=== PATIENT | female | born 1975 | race Caucasian/White ===

== ENCOUNTER 2019-03-12 15:43 | Observation (INO) | payer MEDICARE, MEDICAID ==
[~2019-03-12] VITALS: Ht 157 cm; Wt 164.4 kg
--- NOTE | 2019-03-12 15:57 | ED Dyspnea ---
General Stated Complaint: SOA, CHEST PAIN Source of Information: Patient Exam Limitations: No Limitations History of Present Illness Date Seen by Provider: Mar 12, 2019 Time Seen by Provider: 15:54 Initial Comments 43-year-old female presents with shortness of breath. She also complains of pain substernally when she takes a deep breath. Patient has severe emphysema COPD and is currently on home oxygen. She reports that it started around 4:30 this morning. That she's tried some inhalers with no improvement. She denies any nausea, vomiting, or diaphoresis. Patient is concerned she might have pneumonia. She does have a slight increased cough but no reports of fever. Allergies and Home Medications Allergies Coded Allergies: allopurinol (Verified Allergy, Unknown, 03/12/19) ibuprofen (Verified Allergy, Unknown, 03/12/19) levofloxacin (Verified Allergy, Unknown, 03/12/19) Review of Systems Review of Systems Constitutional: No diaphoresis, No fever Respiratory: cough, dyspnea on exertion, short of breath Cardiovascular: chest pain (with breathing) Gastrointestinal: no symptoms reported Genitourinary: no symptoms reported Skin: no symptoms reported Past Rdblctz-Ycwlmk-Qolfzo Hx Past Med/Social Hx: Reviewed Nursing Past Med/Soc Hx Physical Exam Vital Signs Vital Signs - First Documented 03/12/19 03/12/19 16:00 16:06 Temp 37.3 Pulse 129 B/P (MAP) 138/81 (100) Pulse Ox 98 O2 Delivery Nasal Cannula O2 Flow Rate 4.00 FiO2 98 Capillary Refill : Height, Weight, BMI Height: '" Weight: lbs. oz. kg; BMI Method: General Appearance: No Apparent Distress, WD/WN, Obese HEENT: PERRL/EOMI Respiratory: No Respiratory Distress, Decreased Breath Sounds (mild bibasilar) Cardiovascular: Tachycardia Gastrointestinal: Non Tender, Soft Neurologic/Psychiatric: Alert, Oriented x3 Skin: Normal Color, Warm/Dry Progress/Results/Core Measures Results/Orders Lab Results Laboratory Tests Test 03/12/19 15:50 Range/Units White Blood Count 9.8 4.3-11.0 10^3/uL Red Blood Count 4.08 L 4.35-5.85 10^6/uL Hemoglobin 10.4 L 11.5-16.0 G/DL Hematocrit 36 35-52 % Mean Corpuscular Volume 89 80-99 FL Mean Corpuscular Hemoglobin 25 25-34 PG Mean Corpuscular Hemoglobin Concent 29 L 32-36 G/DL Red Cell Distribution Width 14.5 10.0-14.5 % Platelet Count 190 130-400 10^3/uL Mean Platelet Volume 11.4 H 7.4-10.4 FL Neutrophils (%) (Auto) 73 42-75 % Lymphocytes (%) (Auto) 13 12-44 % Monocytes (%) (Auto) 12 0-12 % Eosinophils (%) (Auto) 1 0-10 % Basophils (%) (Auto) 0 0-10 % Neutrophils # (Auto) 7.2 1.8-7.8 X 10^3 Lymphocytes # (Auto) 1.2 1.0-4.0 X 10^3 Monocytes # (Auto) 1.2 H 0.0-1.0 X 10^3 Eosinophils # (Auto) 0.1 0.0-0.3 10^3/uL Basophils # (Auto) 0.0 0.0-0.1 10^3/uL D-Dimer 0.63 H 0.00-0.49 UG/ML Sodium Level 141 135-145 MMOL/L Potassium Level 4.3 3.6-5.0 MMOL/L Chloride Level 98 98-107 MMOL/L Carbon Dioxide Level 31 21-32 MMOL/L Anion Gap 12 5-14 MMOL/L Blood Urea Nitrogen 29 H 7-18 MG/DL Creatinine 1.48 H 0.60-1.30 MG/DL Estimat Glomerular Filtration Rate 38 BUN/Creatinine Ratio 20 Glucose Level 124 H 70-105 MG/DL Calcium Level 9.7 8.5-10.1 MG/DL Corrected Calcium 9.4 8.5-10.1 MG/DL Magnesium Level 2.0 1.6-2.4 MG/DL Total Bilirubin 0.3 0.1-1.0 MG/DL Aspartate Amino Transf (AST/SGOT) 15 5-34 U/L Alanine Aminotransferase (ALT/SGPT) 8 0-55 U/L Alkaline Phosphatase 61 40-136 U/L Troponin I < 0.30 <0.30 NG/ML Total Protein 7.4 6.4-8.2 GM/DL Albumin 4.4 3.2-4.5 GM/DL My Orders Orders - MEDINA,EDUARDO L DO Cbc With Automated Diff (03/12/19 15:52) Comprehensive Metabolic Panel (03/12/19 15:52) Magnesium (03/12/19 15:52) Chest Pa/Lat (2 View) (03/12/19 15:52) Ekg Tracing (03/12/19 15:52) O2 (03/12/19 15:52) Ed Iv/Invasive Line Start (03/12/19 15:52) Monitor-Rhythm Ecg Trace Only (03/12/19 15:52) Troponin I Fs (03/12/19 15:52) Fibrin Degradation Products (03/12/19 15:57) Albuterol/Ipra Inhalation Soln (Duoneb I (03/12/19 16:15) Svn Small Volume Nebulizer (03/12/19 16:15) Magnesium 1 Gm/100 Ml Ivpb (Magnesium Munoz (03/12/19 16:15) Diltiazem Cd 24 Hr Capsule (Cardizem Cd (03/13/19 09:00) Apixaban Tablet (Eliquis Tablet) (03/12/19 17:00) Medications Given in ED Current Medications Medications Dose Ordered Sig/Robert Route Start Time Stop Time Status Last Admin Dose Admin Albuterol/ Ipratropium 3 ml ONCE ONCE INH 03/12/19 16:15 03/12/19 16:18 DC 03/12/19 16:25 3 ML Magnesium Sulfate/ Dextrose 100 ml @ 0 mls/hr ONCE ONCE IV 03/12/19 16:15 03/12/19 16:18 DC 03/12/19 16:25 100 MLS/HR Vital Signs/I&O 03/12/19 03/12/19 16:00 16:06 Temp 37.3 Pulse 129 B/P (MAP) 138/81 (100) Pulse Ox 98 O2 Delivery Nasal Cannula O2 Flow Rate 4.00 FiO2 98 Progress Progress Note : Time: 16:58 Progress Note Diltiazem exam CD 240 mg or any by mouth diltiazem is not available at this facility. We will bridge with a small dose of diltiazem IV until patient is able to be admitted and transferred to [facility] to receive her by mouth dose. Initial ECG Impression Date: Mar 12, 2019 Initial ECG Impression Time: 15:51 Initial ECG Rate: 133 Initial ECG Rhythm: A Fib/Flutter Initial ECG Intervals: QT (510ms) Initial ECG Impression: Atrial Fibrillation Initial ECG Comparisson: No Previous ECG Available Comment Afib, prolonged qt Departure Communication (Admissions) Time/Spoke to Admitting Phy: 16:45 Called and discussed with Dr. Russ. We will transfered and admit patient Via [facility] ICU for observation. Patient with new onset atrial fib, pulmonary edema. Also consulted Dr. Araujo who would like Cardizem CD 240 mg by mouth started daily along with Eliquis 5 mg now and then 5 mg twice a day. Patient is stable. She will be transferred in stable condition. Bridge orders were written by co Time/Spoke to Consulting Phy: 16:50 Impression Primary Impression: Atrial fibrillation Qualified Codes: I48.91 - Unspecified atrial fibrillation Additional Impression: Pulmonary congestion Disposition: ADMITTED INPATIENT Condition: Stable Admissions Decision to Admit Reason: Admit from ER (General) Departure-Patient Inst. Referrals: NO,LOCAL PHYSICIAN (PCP/Family) Primary Care Physician EDUARDO MEDINA DO Mar 12, 2019 15:56
[2019-03-12 16:00] LABS: HEMATOCRIT 36 % (35-52); HEMOGLOBIN 10.4 G/DL (11.5-16.0); MEAN CORPUSCULAR HEMOGLOBIN 25 PG (25-34); MEAN CORPUSCULAR VOLUME 89 FL (80-99); WHITE BLOOD COUNT 9.8 10^3/uL (4.3-11.0)
[2019-03-12 16:01] LABS: BASOPHILS % (AUTO) 0 % (0-10); EOSINOPHILS # (AUTO) 0.1 10^3/uL (0.0-0.3); EOSINOPHILS % (AUTO) 1 % (0-10); LYMPHOCYTES # (AUTO) 1.2 X 10^3 (1.0-4.0); LYMPHOCYTES % (AUTO) 13 % (12-44); MEAN CORPUSCULAR HGB CONC 29 G/DL (32-36); MEAN PLATELET VOLUME 11.4 FL (7.4-10.4); MONOCYTES # (AUTO) 1.2 X 10^3 (0.0-1.0); MONOCYTES % (AUTO) 12 % (0-12); NEUTROPHILS # (AUTO) 7.2 X 10^3 (1.8-7.8); NEUTROPHILS % (AUTO) 73 % (42-75); PLATELET COUNT 190 10^3/uL (130-400); RED CELL DISTRIBUTION WIDTH 14.5 % (10.0-14.5)
[2019-03-12] MEDS ORDERED: MAGNESIUM 1 GM/100 ML IVPB 100 ML IV ONE (16:15)
[2019-03-12] MEDS ORDERED: RT-ALBUTEROL/IPRATROPIUM 3 ML (DUONEB) VIAL INH ONE (16:15)
[2019-03-12 16:21] LABS: BUN/CREATININE RATIO 20; CARBON DIOXIDE 31 MMOL/L (21-32); CHLORIDE 98 MMOL/L (98-107); CREATININE SERUM 1.48 MG/DL (0.60-1.30); GFR ESTIMATED 38; POTASSIUM 4.3 MMOL/L (3.6-5.0); SODIUM 141 MMOL/L (135-145)
--- NOTE | 2019-03-12 16:21 | Diagnostic Imaging Report ---
PA and lateral chest 3:47. Indication: Chest pain. There are no prior studies available for comparison. The heart is enlarged and the central pulmonary vascularity is engorged. This appearance would be consistent with pulmonary congestion. There is no sign of pneumonia or significant pleural effusion. The mediastinum is not widened. The osseous structures are intact. Impression: There is cardiomegaly and pulmonary congestion. A follow-up exam would recommended for continued evaluation. Dictated by: Dictated on workstation # [id number]
[2019-03-12 16:22] LABS: ALANINE AMINOTRANSFERASE 8 U/L (0-55); ALBUMIN 4.4 GM/DL (3.2-4.5); ALKALINE PHOSPHATASE 61 U/L (40-136); BILIRUBIN,TOTAL 0.3 MG/DL (0.1-1.0); CALCIUM 9.7 MG/DL (8.5-10.1); GLUCOSE 124 MG/DL (70-105); TOTAL PROTEIN 7.4 GM/DL (6.4-8.2)
--- NOTE | 2019-03-12 16:25 | NUR ---
[facility] LEFT FOR A TRANSFER AND WILL NOT RETURN UNTIL ABOUT 1999. [facility], [facility], AND [facility] ALL TURNED DOWN THE TRANSFER. THE PT IS AWARE OF THE WAIT TIME.
[2019-03-12] MEDS ORDERED: APIXABAN 5 MG (ELIQUIS) TABLET PO ONE (17:00)
[2019-03-12] MEDS ORDERED: DILTIAZEM 25 MG/5 ML INJ (CARDIZEM) VIAL IVP ONE ×2 (17:00→18:15)
--- NOTE | 2019-03-12 19:45 | NUR ---
Called to registration to request an un-do of a an erroneously placed depart time 1645. Pt is currently awaiting EMS availability by [facility] on a current transfer to [facility]. No surrounding county ambulance acceptance from calls made by Kisha GUAJARDO before 1600. All [facility]/EMS services report no extra trucks to put in service for [facility]. Registration states can not un-do a time on an admitted patient.
--- NOTE | 2019-03-12 20:36 | NUR ---
Patient left with [facility].
[2019-03-12 21:27] VITALS: BP 133/97
[2019-03-12 21:34] VITALS: BP 141/92
[2019-03-12 21:45] VITALS: BP 148/88
[2019-03-12 22:00] VITALS: BP 130/88
[2019-03-12] MEDS: ALPRAZolam 0.5 MG (XANAX) TAB PO SCH (22:53)
[2019-03-12] MEDS: MELATONIN 3 MG TABLET PO SCH (22:54)
[2019-03-12] MEDS ORDERED: RT-IPRATROPIUM (ATROVENT) 0.5MG/2.5ML AMP IH ONE (22:55)
[2019-03-12] MEDS ORDERED: RT-LEVALBUTEROL (XOPENEX) 1.25 MG/3 ML NEB NON-FORMULARY ONE (22:56)
[2019-03-12 23:00] VITALS: BP 133/83
[2019-03-12] MEDS ORDERED: RT-LEVALBUTEROL (XOPENEX) 1.25 MG/3 ML NEB NON-FORMULARY INH PRN (23:45)
[2019-03-12] MEDS ORDERED: RT-IPRATROPIUM (ATROVENT) 0.5MG/2.5ML AMP IH PRN (23:45)
[2019-03-13] VITALS (16 sets, daily range): BP systolic 101–143; BP diastolic 66–112
[2019-03-13 04:07] LABS: BASOPHILS % (AUTO) 0 % (0-10); EOSINOPHILS # (AUTO) 0.1 10^3/uL (0.0-0.3); EOSINOPHILS % (AUTO) 1 % (0-10); HEMATOCRIT 32 % (35-52); HEMOGLOBIN 9.5 G/DL (11.5-16.0); LYMPHOCYTES # (AUTO) 0.9 X 10^3 (1.0-4.0); LYMPHOCYTES % (AUTO) 13 % (12-44); MEAN CORPUSCULAR HEMOGLOBIN 26 PG (25-34); MEAN CORPUSCULAR HGB CONC 30 G/DL (32-36); MEAN CORPUSCULAR VOLUME 87 FL (80-99); MEAN PLATELET VOLUME 12.2 FL (7.4-10.4); MONOCYTES # (AUTO) 0.8 X 10^3 (0.0-1.0); MONOCYTES % (AUTO) 12 % (0-12); NEUTROPHILS # (AUTO) 5.3 X 10^3 (1.8-7.8); NEUTROPHILS % (AUTO) 74 % (42-75); PLATELET COUNT 146 10^3/uL (130-400); RED CELL DISTRIBUTION WIDTH 14.7 % (10.0-14.5); WHITE BLOOD COUNT 7.1 10^3/uL (4.3-11.0)
[2019-03-13 04:33] LABS: CALCIUM 9.6 MG/DL (8.5-10.1); CREATININE SERUM 1.34 MG/DL (0.60-1.30); MAGNESIUM 2.2 MG/DL (1.6-2.4); PHOSPHORUS 3.9 MG/DL (2.3-4.7); POTASSIUM 4.2 MMOL/L (3.6-5.0)
--- NOTE | 2019-03-13 05:50 | Pulmonary Consultation ---
History of Present Illness History of Present Illness Date of Consultation 03/13/19 05:50 Time Seen by Provider: 11:17 Date of Admission History of Present Illness 43yo with hx of morbid obesity, BOSTON ( noncompliant with CPAP therapy) presented to ED with progressive SOB and pleuritic substernal CP. Onset was of symptoms was in the morning just prior to arrival. Home INH did not help. No fevers, N/V/D. I am consulted for pulmonary management. Allergies and Home Medications Allergies Coded Allergies: allopurinol (Verified Allergy, Unknown, 03/12/19) ibuprofen (Verified Allergy, Unknown, 03/12/19) levofloxacin (Verified Allergy, Unknown, 03/12/19) Home Medications Albuterol Sulfate 2.5 Mg/3 Ml Vial.neb, 2.5 MG NEB Q6H PRN for SHORTNESS OF BREATH, (Reported) Albuterol Sulfate 1 Puff Puff, 2 PUFF IH Q4H PRN for SHORTNESS OF BREATH, (Reported) 1 PUFF = 90 MCG Alprazolam 0.25 Mg Tablet, 0.25 MG PO HS, (Reported) Brimonidine Tartrate 5 Ml Btl, 1 DROP OU BID, (Reported) 0.2% Citalopram Hydrobromide 40 Mg Tablet, 20 MG PO HS, (Reported) TAKES 1/2 (40MG) TABLET Colchicine 0.6 Mg Tablet, 0.6 MG PO Q48H, (Reported) Docusate Sodium 100 Mg Capsule, 700-800 MG PO DAILY, (Reported) Ferrous Sulfate 325 Mg Tablet, 325 MG PO DAILY, (Reported) Furosemide 40 Mg Tablet, 40 MG PO Q48H, (Reported) Furosemide 40 Mg Tablet, 20 MG PO Q48H, (Reported) TAKES 1/2 (40MG) TABLET ON DAYS SHE TAKES COLCHICINE Lisinopril 20 Mg Tablet, 10 MG PO DAILY, (Reported) TAKES 1/2 (20MG) TABLET Medroxyprogesterone Acetate 150 Mg/1 Ml Syringe, 150 MG IM EVERY 3 MONTHS, (Reported) Melatonin 10 Mg Capsule, 10 MG PO HS, (Reported) Potassium Chloride 10 Meq Tablet.er, 10 MEQ PO DAILY, (Reported) Past Bnpjkrl-Bsuxua-Zvasuj Hx Past Med/Social Hx: Reviewed Nursing Past Med/Soc Hx Patient Social History Alcohol Use: Denies Use Recreational Drug Use: No Smoking Status: Never a Smoker 2nd Hand Smoke Exposure: No Recent Foreign Travel: No Contact w/Someone Who Travel: No Recent Infectious Disease Expo: No Recent Hopitalizations: No Physical Abuse: No Sexual Abuse: No Mistreated: No Fear: No Seasonal Allergies Seasonal Allergies: No Past Medical History Surgeries: No Respiratory: Yes Asthma, COPD Cardiac: Yes (CHF) Genitourinary: No Gastrointestinal: No Musculoskeletal: Yes Gout Endocrine: Yes Diabetes, Non-Insulin dep HEENT: No Cancer: No Psychosocial: No Integumentary: No Blood Disorders: No Sepsis Event Evaluation Height, Weight, BMI Height: '" Weight: lbs. oz. kg; 66.12 BMI Method: Exam Exam Vital Signs Date Time Temp Pulse Resp B/P (MAP) Pulse Ox O2 Delivery O2 Flow Rate FiO2 03/13/19 04:00 97 Nasal Cannula 3.00 03/13/19 01:00 117 21 113/66 (82) 99 Nasal Cannula 3.00 03/13/19 01:00 117 03/13/19 00:00 110 25 101/75 (84) 99 Nasal Cannula 3.00 03/13/19 00:00 98 Nasal Cannula 3.00 03/12/19 23:00 105 14 133/83 (100) 100 Nasal Cannula 3.00 03/12/19 22:59 99 Nasal Cannula 4.00 03/12/19 22:00 83 26 130/88 (102) 90 Nasal Cannula 3.00 03/12/19 21:45 100 20 148/88 (108) 95 Nasal Cannula 3.00 03/12/19 21:34 97 28 141/92 (108) 92 Nasal Cannula 3.00 03/12/19 21:28 117 03/12/19 21:27 36.3 112 20 133/97 (109) 93 Nasal Cannula 3.00 03/12/19 20:36 107 20 155/104 96 Nasal Cannula 4.00 03/12/19 16:06 98 4.00 98 03/12/19 16:00 37.3 129 138/81 (100) Nasal Cannula I & O 03/13/19 07:00 Intake Total 450 ml Balance 450 ml Height & Weight Height: '" Weight: lbs. oz. kg; 66.12 BMI Method: General Appearance: No Apparent Distress, WD/WN, Obese HEENT: PERRL/EOMI Respiratory: No Respiratory Distress, Decreased Breath Sounds (mild bibasilar) Cardiovascular: Tachycardia Capillary Refill: Less Than 3 Seconds Neurologic/Psychiatric: Alert, Oriented x3 Skin: Normal Color, Warm/Dry Results Lab Laboratory Tests 03/12/19 15:50 03/13/19 03:20 Assessment/Plan Assessment/Plan A-fib/flutter with RVR -Cardiology is following COPDAE -SVNS Nocturnal hypoxia -PT uses oxygen at night Morbid obesity with OHS -Will follow for BOSTON if pt wants to become tolerant of CPAP therapy CHF -Echo pending DM II CKD III Bilateral LE edema -Dopplers are negative MARCELO SHOEMAKER DO Mar 13, 2019 05:50
--- NOTE | 2019-03-13 07:21 | Diagnostic Imaging Report ---
INDICATION: Atrial fib, CHF. COMPARISON: 03/12/2019 FINDINGS: Single view of the chest demonstrates cardiac enlargement with persistent but decreased central vascular congestion. There is no pneumothorax. Osseous structures are stable. No large effusion. IMPRESSION: Cardiac enlargement with persistent but decreasing central vascular congestion. Dictated by: Dictated on workstation # [id number]
[2019-03-13] MEDS ORDERED: RT-ALBUTEROL/IPRATROPIUM 3 ML (DUONEB) VIAL INH PRN (07:45)
[2019-03-13] MEDS ORDERED: FLU QUADRIvalent (5+ YOA) 2019-2020 (AFLURIA) 0.5 ML IM ONE (08:00)
[2019-03-13] MEDS: APIXABAN 5 MG (ELIQUIS) TABLET PO SCH ×2 (08:38→21:27)
[2019-03-13] MEDS ORDERED: DILTIAZEM 240 MG (CARDIZEM CD) CAP PO SCH ×2 (09:00)
--- NOTE | 2019-03-13 09:06 | Consultation-Cardiology ---
HPI-Cardiology Cardiology Consultation: Date of Consultation 03/13/19 Time Seen by a Provider: 08:45 Date of Admission 03-13-19 Attending Physician Jackie Reyes DO Admitting Physician Silvio Fu MD Consulting Physician James Lewis MD HPI: Chief Complaint: New onset a-fib/flutter with RVR Ms. Mane is a 43 year old female admitted to ICU 6 from [facility] ED. She reports she woke up yesterday morning around 4 a.m. and felt she was unable to catch her breath. She report she was having mid-sternal chest pain, which was dull, present with deep breathing. She reports a feeling of fullness in her chest. She reports she tried her albuterol SVN and inhaler at home with no relief. She reports she was unable to rest d/t SOB. She states by approx 3 p.m. she went to the ED in [facility] and was told she was in a-fib. She continues to feel short of breath with chest tightness when trying to take deep breaths. She denies any n/v/d. She denies any fever or chills. She states she has been having episodes of palpitations at home brought on with exertion and relieved with rest. She reports chronic exertional dyspnea, but it has been progressively worse. She denies any syncope or near syncope. 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 Review of Systems-Cardiology Review of Systems Constitutional: No chills, No fever Eyes: No vision change Ears/Nose/Throat: No epistaxis, No recent hearing loss Respiratory: As described under HPI Cardiovascular: As described under HPI Gastrointestinal: No constipation, No diarrhea, No nausea, No vomiting Genitourinary: No dysuria, No hematuria Skin: No rash on exposed areas, No ulcerations on exposed areas Psychiatric/Neurological: No focal weakness, No syncope Hematologic: anemia; No bleeding abnormalities RUG-Srjjml-Bbveyk Hx Patient Social History Alcohol Use: Denies Use Recreational Drug Use: No Smoking Status: Never a Smoker 2nd Hand Smoke Exposure: No Recent Foreign Travel: No Recent Infectious Disease Expo: No Past Medical History PMH As described under Assessment. Family Medical History Family Medical History: Denies any family h/o premature CAD or SCD. Allergies and Home Medications Allergies Coded Allergies: allopurinol (Verified Allergy, Unknown, 03/12/19) ibuprofen (Verified Allergy, Unknown, 03/12/19) levofloxacin (Verified Allergy, Unknown, 03/12/19) Home Medications Albuterol Sulfate 2.5 Mg/3 Ml Vial.neb, 2.5 MG NEB Q6H PRN for SHORTNESS OF BREATH, (Reported) Albuterol Sulfate 1 Puff Puff, 2 PUFF IH Q4H PRN for SHORTNESS OF BREATH, (Reported) 1 PUFF = 90 MCG Alprazolam 0.25 Mg Tablet, 0.25 MG PO HS, (Reported) Brimonidine Tartrate 5 Ml Btl, 1 DROP OU BID, (Reported) 0.2% Citalopram Hydrobromide 40 Mg Tablet, 20 MG PO HS, (Reported) TAKES 1/2 (40MG) TABLET Colchicine 0.6 Mg Tablet, 0.6 MG PO Q48H, (Reported) Docusate Sodium 100 Mg Capsule, 700-800 MG PO DAILY, (Reported) Ferrous Sulfate 325 Mg Tablet, 325 MG PO DAILY, (Reported) Furosemide 40 Mg Tablet, 40 MG PO Q48H, (Reported) Furosemide 40 Mg Tablet, 20 MG PO Q48H, (Reported) TAKES 1/2 (40MG) TABLET ON DAYS SHE TAKES COLCHICINE Lisinopril 20 Mg Tablet, 10 MG PO DAILY, (Reported) TAKES 1/2 (20MG) TABLET Medroxyprogesterone Acetate 150 Mg/1 Ml Syringe, 150 MG IM EVERY 3 MONTHS, (Reported) Melatonin 10 Mg Capsule, 10 MG PO HS, (Reported) Potassium Chloride 10 Meq Tablet.er, 10 MEQ PO DAILY, (Reported) Physical Exam-Cardiology Physical Exam Vital Signs/I&O 03/13/19 03/13/19 03/13/19 03/14/19 20:19 20:31 21:00 00:00 Temp 36.8 36.3 Pulse 102 85 Resp 18 18 B/P (MAP) 118/82 (94) 111/75 (87) Pulse Ox 97 98 98 O2 Delivery Nasal Cannula Nasal Cannula Nasal Cannula Nasal Cannula O2 Flow Rate 3.00 2.00 3.00 2.50 03/14/19 03/14/19 03/14/19 01:00 04:00 06:59 Temp 36.6 Pulse 82 84 87 Resp 16 B/P (MAP) 119/86 (97) Pulse Ox 98 O2 Delivery Nasal Cannula O2 Flow Rate 2.50 03/14/19 00:00 Intake Total 882 ml Balance 882 ml Capillary Refill : Less Than 3 Seconds Constitutional: AAO x 3, well-developed, well-nourished HEENT: PERRL, hearing is well preserved, oral hygience is good Neck: No carotid bruit; carotid pulses are 2 + bilaterally Respiratory: No accessory muscle use, No respiratory distress; chest expansion is symmetric, chest is bilaterally symmetric, other (good air entry) Cardiovascular: irregularly irregular; No JVD; S1 and S2 Gastrointestinal: No tender; soft, round, audible bowel sounds Rectal: deferred Extremities: no lower extremity edema bilateral Neurologic/Psychiatric: grossly intact Skin: No rash on exposed areas, No ulcerations on exposed areas Data Review Labs Laboratory Tests 03/13/19 12:14: Blood Gas Puncture Site RT RADIAL, Blood Gas Patient Temperature 36.6, Arterial Blood pH 7.36L, Arterial Blood Partial Pressure CO2 65H, Arterial Blood Partial Pressure O2 123H, Arterial Blood HCO3 36H, Arterial Blood Total CO2 38.2H, Arterial Blood Oxygen Saturation 99, Arterial Blood Base Excess 10.4H, Olaf Test YES-POS, Blood Gas Ventilator Setting NO, Blood Gas Inspired Oxygen 4 03/14/19 06:39: White Blood Count 5.8, Red Blood Count 3.50L, Hemoglobin 9.0L, Hematocrit 31L, Mean Corpuscular Volume 90, Mean Corpuscular Hemoglobin 26, Mean Corpuscular Hemoglobin Concent 29L, Red Cell Distribution Width 14.9H, Platelet Count 160, Mean Platelet Volume 11.9H, Neutrophils (%) (Auto) 71, Lymphocytes (%) (Auto) 15, Monocytes (%) (Auto) 11, Eosinophils (%) (Auto) 3, Basophils (%) (Auto) 0, Neutrophils # (Auto) 4.1, Lymphocytes # (Auto) 0.9L, Monocytes # (Auto) 0.6, Eosinophils # (Auto) 0.2, Basophils # (Auto) 0.0, Sodium Level 141, Potassium Level 4.5, Chloride Level 101, Carbon Dioxide Level 30, Anion Gap 10, Blood Urea Nitrogen 31H, Creatinine 1.37H, Estimat Glomerular Filtration Rate 42, BUN/Cr eatinine Ratio 23, Glucose Level 87, Calcium Level 9.4, Phosphorus Level 4.5, Magnesium Level 2.4 Microbiology 03/12/19 MRSA Screen - Final, Complete MRSA not isolated Radiology NAME: CHEYANNE MANE [facility] REC#: [id number] PT STATUS: ADM Letty : 1975 PHYSICIAN: JACKIE REYES DO ADMIT DATE: 03/12/19/ICU Draft Date of Exam:03/13/19 CHEST 1 VIEW, AP/PA ONLY INDICATION: Atrial fib, CHF. COMPARISON: 03/12/2019 FINDINGS: Single view of the chest demonstrates cardiac enlargement with persistent but decreased central vascular congestion. There is no pneumothorax. Osseous structures are stable. No large effusion. IMPRESSION: Cardiac enlargement with persistent but decreasing central vascular congestion. Dictated on workstation # [id number] Dict: 03/13/19 0713 Trans: 03/13/19 0720 [id number] Interpreted by: MANOJ RAY Electronically signed by: ECG Impression ECG Initial ECG Impression: Atrial Fibrillation w/RVR A/P-Cardiology Assessment/Admission Diagnosis New onset a-fib/flutter with RVR (first diagnosed at time of ED evaluation 03-15-19) Progressive exertional dyspnea Palpitations with exertion likely secondary to a-fib/flutter with RVR Chest discomfort with deep breathing Reports h/o CHF first diagnosed in 2015 per pt report - acute on chronic CHF, likely diastolic HTN DM 2 Acute exacerbation of COPD - pulmonary services managing BOSTON - non-compliant with CPAP tx CKD Reported h/o iron deficiency anemia Chronic bilat LE swelling Morbid obesity - BMI 66.1 Clinical Quality Measures DVT/VTE Risk/Contraindication: Risk Factor Score Per Nursin RFS Level Per Nursing on Admit: 4+=Very High GUNNER BASURTO Mar 13, 2019 09:06
[2019-03-13] MEDS ORDERED: ALBU2.5V4 NEB (09:12)
[2019-03-13] MEDS ORDERED: FURO40TA4 PO (09:12)
[2019-03-13] MEDS ORDERED: COLC0.6T56 PO (09:12)
[2019-03-13] MEDS ORDERED: CITA40TA11 PO (09:12)
[2019-03-13] MEDS ORDERED: POTA10TA10 PO (09:12)
[2019-03-13] MEDS ORDERED: FERR-84 PO (09:12)
[2019-03-13] MEDS ORDERED: DOCU-143 PO (09:12)
[2019-03-13] MEDS ORDERED: RT-ALBUINH IH (09:12)
[2019-03-13] MEDS ORDERED: BRIMON0.2 OU (09:12)
[2019-03-13] MEDS ORDERED: LISI-552 PO (09:12)
[2019-03-13] MEDS ORDERED: ALPR0.254 PO (09:12)
[2019-03-13] MEDS ORDERED: MELA10CA2 PO (09:14)
[2019-03-13] MEDS ORDERED: MEDR150D8 IM (09:14)
--- NOTE | 2019-03-13 09:22 | NUR ---
SPOKE WITH THE PATIENT ABOUT HER MEDICATIONS. WE WENT OVER THE EXT MED HX AND SHE VERIFIED HOW SHE TAKES THEM. HER CELEXA 40MG WAS FILLED #30 FOR 30 DAYS 01-23-19 HOWEVER SHE STATES SHE IS ONLY TAKING 1/2 TABLET DAILY NOW. SHE TAKES 1/2 OF HER LASIX EVERY OTHER DAY (ON DAYS SHE TAKES COLCHICINE) AND TAKES A WHOLE LASIX ON THE OPPOSITE DAYS. OTC MEDS INCLUDE: COLACE 6-7- DAILY IRON DAILY MELATONIN 10MG HS SHE ALSO STATES SHE RECEIVES THE DEPO PROVERA SHOT EVERY THREE MONTHS.
[2019-03-13] MEDS ORDERED: DILTIAZEM 120 MG (CARDIZEM CD) CAP PO SCH (09:30)
--- NOTE | 2019-03-13 09:38 | Consultation-Cardiology ---
HPI-Cardiology Cardiology Consultation: Date of Consultation 03/13/19 Time Seen by a Provider: 09:15 Date of Admission Attending Physician Jackie Russ DO Admitting Physician Silvio Fu MD Consulting Physician DASIA VILLAR MD, MA, FACP, FACC, FSCAI, CCDS Physician requesting consult: Dr Russ HPI: Chief Complaint: Reason for consultation: Newly diagnosed a-fib/flutter with RVR Ms. Mane is a 43 year old female admitted to ICU 6 from [facility] ED. She reports she woke up yesterday morning around 4 a.m. and felt she was unable to catch her breath. She report she was having mid-sternal chest pain, which was dull, present with deep breathing. She reports a feeling of fullness in her chest. She reports she tried her albuterol SVN and inhaler at home with no relief. She reports she was unable to rest d/t SOB. She states by approx 3 p.m. she went to the ED in [facility] and was told she was in a-fib. She continues to feel short of breath with chest tightness when trying to take deep breaths. She denies any n/v/d. She denies any fever or chills. She states she has been having episodes of palpitations at home brought on with exertion and relieved with rest. She reports chronic exertional dyspnea, but it has been progressively worse. She denies any syncope or near syncope. She reports chronic bilat LE swelling which is least in the morning and worse at the end of the day. Review of Systems-Cardiology Review of Systems Constitutional: No chills, No fever Eyes: No vision change Ears/Nose/Throat: No epistaxis, No recent hearing loss Respiratory: As described under HPI Cardiovascular: As described under HPI Gastrointestinal: No constipation, No diarrhea, No nausea, No vomiting Genitourinary: No dysuria, No hematuria Skin: No rash on exposed areas, No ulcerations on exposed areas Psychiatric/Neurological: No focal weakness, No syncope Hematologic: anemia; No bleeding abnormalities TLB-Ahqluf-Wxybri Hx Patient Social History Alcohol Use: Denies Use Recreational Drug Use: No Smoking Status: Never a Smoker 2nd Hand Smoke Exposure: No Recent Foreign Travel: No Recent Infectious Disease Expo: No Past Medical History PMH As described under Assessment. Family Medical History Family Medical History: Denies any family h/o premature CAD or SCD. Allergies and Home Medications Allergies Coded Allergies: allopurinol (Verified Allergy, Unknown, 03/12/19) ibuprofen (Verified Allergy, Unknown, 03/12/19) levofloxacin (Verified Allergy, Unknown, 03/12/19) Home Medications Albuterol Sulfate 2.5 Mg/3 Ml Vial.neb, 2.5 MG NEB Q6H PRN for SHORTNESS OF B REATH, (Reported) Albuterol Sulfate 1 Puff Puff, 2 PUFF IH Q4H PRN for SHORTNESS OF BREATH, (Reported) 1 PUFF = 90 MCG Alprazolam 0.25 Mg Tablet, 0.25 MG PO HS, (Reported) Brimonidine Tartrate 5 Ml Btl, 1 DROP OU BID, (Reported) 0.2% Citalopram Hydrobromide 40 Mg Tablet, 20 MG PO HS, (Reported) TAKES 1/2 (40MG) TABLET Colchicine 0.6 Mg Tablet, 0.6 MG PO Q48H, (Reported) Docusate Sodium 100 Mg Capsule, 700-800 MG PO DAILY, (Reported) Ferrous Sulfate 325 Mg Tablet, 325 MG PO DAILY, (Reported) Furosemide 40 Mg Tablet, 40 MG PO Q48H, (Reported) Furosemide 40 Mg Tablet, 20 MG PO Q48H, (Reported) TAKES 1/2 (40MG) TABLET ON DAYS SHE TAKES COLCHICINE Lisinopril 20 Mg Tablet, 10 MG PO DAILY, (Reported) TAKES 1/2 (20MG) TABLET Medroxyprogesterone Acetate 150 Mg/1 Ml Syringe, 150 MG IM EVERY 3 MONTHS, (Reported) Melatonin 10 Mg Capsule, 10 MG PO HS, (Reported) Potassium Chloride 10 Meq Tablet.er, 10 MEQ PO DAILY, (Reported) Patient Home Medication List Home Medication List Reviewed: Yes Physical Exam-Cardiology Physical Exam Vital Signs/I&O 03/12/19 03/12/19 03/12/19 03/12/19 21:40 21:45 22:00 22:59 Pulse 100 83 Resp 20 26 B/P (MAP) 148/88 (108) 130/88 (102) Pulse Ox 96 95 90 99 O2 Delivery Nasal Cannula Nasal Cannula Nasal Cannula Nasal Cannula O2 Flow Rate 3.00 3.00 3.00 4.00 03/12/19 03/13/19 03/13/19 03/13/19 23:00 00:00 00:00 01:00 Pulse 105 110 117 Resp 14 25 B/P (MAP) 133/83 (100) 101/75 (84) Pulse Ox 100 98 99 O2 Delivery Nasal Cannula Nasal Cannula Nasal Cannula O2 Flow Rate 3.00 3.00 3.00 03/13/19 03/13/19 03/13/19 03/13/19 01:00 02:00 03:00 04:00 Pulse 117 101 123 Resp 21 23 21 B/P (MAP) 113/66 (82) 128/112 (117) Pulse Ox 99 97 100 97 O2 Delivery Nasal Cannula Nasal Cannula Nasal Cannula Nasal Cannula O2 Flow Rate 3.00 3.00 3.00 3.00 03/13/19 03/13/19 03/13/19 03/13/19 04:00 05:00 06:00 07:00 Pulse 113 116 100 107 Resp 26 21 22 28 B/P (MAP) 143/88 (106) 112/77 (89) 126/71 (89) 127/85 (99) Pulse Ox 92 100 100 100 O2 Delivery Nasal Cannula Nasal Cannula Nasal Cannula Nasal Cannula O2 Flow Rate 3.00 3.00 3.00 3.00 03/13/19 03/13/19 03/13/19 03/13/19 07:00 08:00 08:00 09:00 Pulse 114 106 112 Resp 21 12 B/P (MAP) 111/71 (84) 135/90 (105) Pulse Ox 100 97 94 O2 Delivery Nasal Cannula Nasal Cannula Nasal Cannula O2 Flow Rate 3.00 3.00 3.00 03/13/19 00:00 Intake Total 350 ml Balance 350 ml Capillary Refill : Less Than 3 Seconds Constitutional: AAO x 3, well-developed, well-nourished HEENT: PERRL, hearing is well preserved, oral hygience is good Neck: No carotid bruit; carotid pulses are 2 + bilaterally Respiratory: No accessory muscle use, No respiratory distress; chest expansion is symmetric, chest is bilaterally symmetric, other (good air entry) Cardiovascular: irregularly irregular; No JVD; S1 and S2 Gastrointestinal: No tender; soft, round, audible bowel sounds Rectal: deferred Extremities: no lower extremity edema bilateral Neurologic/Psychiatric: grossly intact Skin: No rash on exposed areas, No ulcerations on exposed areas Data Review Labs Laboratory Tests 03/12/19 15:50: White Blood Count 9.8, Red Blood Count 4.08L, Hemoglobin 10.4L, Hematocrit 36, Mean Corpuscular Volume 89, Mean Corpuscular Hemoglobin 25, Mean Corpuscular Hemoglobin Concent 29L, Red Cell Distribution Width 14.5, Platelet Count 190, Mean Platelet Volume 11.4H, Neutrophils (%) (Auto) 73, Lymphocytes (%) (Auto) 13, Monocytes (%) (Auto) 12, Eosinophils (%) (Auto) 1, Basophils (%) (Auto) 0, Neutrophils # (Auto) 7.2, Lymphocytes # (Auto) 1.2, Monocytes # (Auto) 1.2H, Eosinophils # (Auto) 0.1, Basophils # (Auto) 0.0, D-Dimer 0.63H, Sodium Level 141, Potassium Level 4.3, Chloride Level 98, Carbon Dioxide Level 31, Anion Gap 12, Blood Urea Nitrogen 29H, Creatinine 1.48H, Estimat Glomerular Filtration Rate 38, BUN/Creatinine Ratio 20, Glucose Level 124H, Calcium Level 9.7, Corrected Calcium 9.4, Magnesium Level 2.0, Total Bilirubin 0.3, Aspartate Amino Transf (AST/SGOT) 15, Alanine Aminotransferase (ALT/SGPT) 8, Alkaline Phosphatase 61, Troponin I < 0.30, Total Protein 7.4, Albumin 4.4 03/13/19 03:20: White Blood Count 7.1, Red Blood Count 3.67L, Hemoglobin 9.5L, Hematocrit 32L, Mean Corpuscular Volume 87, Mean Corpuscular Hemoglobin 26, Mean Corpuscular Hemoglobin Concent 30L, Red Cell Distribution Width 14.7H, Platelet Count 146, Mean Platelet Volume 12.2H, Neutrophils (%) (Auto) 74, Lymphocytes (%) (Auto) 13, Monocytes (%) (Auto) 12, Eosinophils (%) (Auto) 1, Basophils (%) (Auto) 0, Neutrophils # (Auto) 5.3, Lymphocytes # (Auto) 0.9L, Monocytes # (Auto) 0.8, Eosinophils # (Auto) 0.1, Basophils # (Auto) 0.0, Sodium Level 143, Potassium Level 4.2, Chloride Level 101, Carbon Dioxide Level 28, Anion Gap 14, Blood Urea Nitrogen 26H, Creatinine 1.34H, Estimat Glomerular Filtration Rate 43, BUN/Creatinine Ratio 19, Glucose Level 105, Calcium Level 9.6, Magnesium Level 2.2, Phosphorus Level 3.9, B-Type Natriuretic Peptide 272.5H A/P-Cardiology Assessment/Admission Diagnosis A-fib/flutter with RVR (first diagnosed at time of ED evaluation 03-15-19) Progressive exertional dyspnea Palpitations with exertion likely secondary to a-fib/flutter with RVR Chest discomfort with deep breathing Reports h/o CHF first diagnosed in 2015 per pt report - acute on chronic CHF, likely diastolic HTN DM 2 Acute exacerbation of COPD - pulmonary services managing BOSTON - non-compliant with CPAP tx CKD-3 Reported h/o iron deficiency anemia Chronic bilat LE swelling Morbid obesity - BMI 66.1 Discussion and Recomendations * Long-acting dilt for vent rate control * Apixaban for stoke prophylaxis * Advised sleep studies and BOSTON treatment * Monitor labs * Echo * I answered her and her mother's questions in detail Clinical Quality Measures DVT/VTE Risk/Contraindication: Risk Factor Score Per Nursin RFS Level Per Nursing on Admit: 4+=Very High DASIA VILLAR MD FACP FAC CCDS Mar 13, 2019 09:38
[2019-03-13] MEDS: RT-IPRATROPIUM (ATROVENT) 0.5MG/2.5ML AMP IH PRN ×2 (09:44→20:31)
[2019-03-13] MEDS: RT-LEVALBUTEROL (XOPENEX) 1.25 MG/3 ML NEB NON-FORMULARY INH PRN ×2 (09:44→20:31)
--- NOTE | 2019-03-13 10:11 | Diagnostic Imaging Report ---
PROCEDURE: US Venous Lower Ext Ronen. TECHNIQUE: Multiple real-time grayscale images were obtained over the lower extremities in various projections, bilaterally. Additional duplex Doppler and color Doppler images were also obtained. INDICATION: Shortness of air and chest pain. FINDINGS: Study is somewhat limited due to increased body habitus. There is no evidence of right or left lower extremity DVT. Lower extremity deep venous systems without evidence of thrombus. Mid and lower femoral veins were difficult to compress due to severe patient pain. There is normal augmentation. No fluid collections or masses are seen. IMPRESSION: No evidence of right or left lower extremity DVT. Dictated by: Dictated on workstation # [id number]
[2019-03-13 12:21] LABS: ABG BASE EXCESS 10.4 MMOL/L (-2.5-2.5); ABG OXYGEN SATURATION 99 % (94-100); ABG PCO2 65 MMHG (35-45); ABG PH 7.36 (7.37-7.43); ABG PO2 123 MMHG (79-93); ABG TCO2 38.2 MMOL/L (21.0-31.0)
[2019-03-13 12:24] LABS: ALLENS TEST YES-POS; INSPIRED O2 4; PATIENT TEMP 36.6; VENTILATOR NO
--- NOTE | 2019-03-13 12:41 | NUR ---
Due to ABG results Dr Rosas said to titrate O2; O2 was decreased from 4 L to 2 L NC
--- NOTE | 2019-03-13 13:44 | NUR ---
PATIENT TO THIS FLOOR VIA W/C ACCOMPANIED BY [facility] AND [facility] STAFF (BENNETT STEVENSON.) THIS RN WILL ASSUME CARE OF THIS PATIENT AT THIS TIME.
--- NOTE | 2019-03-13 14:59 | NUR ---
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 THIS RN WILL CONT TO MONITOR THIS PATIENT THROUGHOUT THE REMAINDER OF THIS SHIFT.
--- NOTE | 2019-03-13 15:40 | History & Physical ---
HPI History of Present Illness: 43 yo morbidly obese adult female that presented to ER with worsening shortness of breath and chest pain. Patient states that she tried her Reflux medicine and her nebulizer and neither helped prior to coming in. States that she get these twinges in her chest frequently but this one just did not go away so she had her mother bring her in. She does not follow with a pulmonary doctor. States that she was suppose to wear a CPAP but then lost weight and was told she not longer needed to wear it. Mother states that since then she has gained all the weight back plus some. Denies any current chest pain this AM. Source: patient Exam Limitations: no limitations Date seen by provider: Mar 13, 2019 Time Seen by Provider: 11:00 Attending Physician Jackie Reyes DO PCP Self,Silvio FISHER Consult Date of Admission Mar 12, 2019 at 17:40 Home Medications Home Medications Reviewed patient Home Medication Reconciliation performed by pharmacy medication reconciliations software support technician and/or nursing. Patients Allergies have been reviewed. Allergies Coded Allergies: allopurinol (Verified Allergy, Unknown, 03/12/19) ibuprofen (Verified Allergy, Unknown, 03/12/19) levofloxacin (Verified Allergy, Unknown, 03/12/19) BJR-Fyedcw-Oikmbd Hx Patient Social History Alcohol Use: Denies Use Recreational Drug Use: No Smoking Status: Never a Smoker 2nd Hand Smoke Exposure: No Recent Foreign Travel: No Contact w/other who traveled: No Recent Hopitalizations: No Recent Infectious Disease Expo: No Past Medical History Morbid obesity COPD with O2 dependence BOSTON Review of Systems ([facility]) Constitutional: No chills, No fever, No malaise; weight gain EENTM: no symptoms reported Respiratory: cough, dyspnea on exertion, short of breath Cardiovascular: chest pain; No edema; palpitations Gastrointestinal: no symptoms reported; No abdominal pain, No loss of appetite, No nausea, No vomiting Genitourinary: frequency Musculoskeletal: back pain Skin: no symptoms reported; No lesions, No rash Psychiatric/Neurological: No Symptoms Reported Reviewed Test Results Reviewed Test Results Lab Laboratory Tests Test 03/12/19 15:50 03/13/19 03:20 03/13/19 12:14 Range/Units White Blood Count 9.8 7.1 4.3-11.0 10^3/uL Red Blood Count 4.08 L 3.67 L 4.35-5.85 10^6/uL Hemoglobin 10.4 L 9.5 L 11.5-16.0 G/DL Hematocrit 36 32 L 35-52 % Mean Corpuscular Volume 89 87 80-99 FL Mean Corpuscular Hemoglobin 25 26 25-34 PG Mean Corpuscular Hemoglobin Concent 29 L 30 L 32-36 G/DL Red Cell Distribution Width 14.5 14.7 H 10.0-14.5 % Platelet Count 190 146 130-400 10^3/uL Mean Platelet Volume 11.4 H 12.2 H 7.4-10.4 FL Neutrophils (%) (Auto) 73 74 42-75 % Lymphocytes (%) (Auto) 13 13 12-44 % Monocytes (%) (Auto) 12 12 0-12 % Eosinophils (%) (Auto) 1 1 0-10 % Basophils (%) (Auto) 0 0 0-10 % Neutrophils # (Auto) 7.2 5.3 1.8-7.8 X 10^3 Lymphocytes # (Auto) 1.2 0.9 L 1.0-4.0 X 10^3 Monocytes # (Auto) 1.2 H 0.8 0.0-1.0 X 10^3 Eosinophils # (Auto) 0.1 0.1 0.0-0.3 10^3/uL Basophils # (Auto) 0.0 0.0 0.0-0.1 10^3/uL D-Dimer 0.63 H 0.00-0.49 UG/ML Sodium Level 141 143 135-145 MMOL/L Potassium Level 4.3 4.2 3.6-5.0 MMOL/L Chloride Level 98 101 98-107 MMOL/L Carbon Dioxide Level 31 28 21-32 MMOL/L Anion Gap 12 14 5-14 MMOL/L Blood Urea Nitrogen 29 H 26 H 7-18 MG/DL Creatinine 1.48 H 1.34 H 0.60-1.30 MG/DL Estimat Glomerular Filtration Rate 38 43 BUN/Creatinine Ratio 20 19 Glucose Level 124 H 105 70-105 MG/DL Calcium Level 9.7 9.6 8.5-10.1 MG/DL Corrected Calcium 9.4 8.5-10.1 MG/DL Magnesium Level 2.0 2.2 1.6-2.4 MG/DL Total Bilirubin 0.3 0.1-1.0 MG/DL Aspartate Amino Transf (AST/SGOT) 15 5-34 U/L Alanine Aminotransferase (ALT/SGPT) 8 0-55 U/L Alkaline Phosphatase 61 40-136 U/L Troponin I < 0.30 <0.30 NG/ML Total Protein 7.4 6.4-8.2 GM/DL Albumin 4.4 3.2-4.5 GM/DL Phosphorus Level 3.9 2.3-4.7 MG/DL B-Type Natriuretic Peptide 272.5 H <100.0 PG/ML Blood Gas Puncture Site RT RADIAL Blood Gas Patient Temperature 36.6 Arterial Blood pH 7.36 L 7.37-7.43 Arterial Blood Partial Pressure CO2 65 H 35-45 MMHG Arterial Blood Partial Pressure O2 123 H 79-93 MMHG Arterial Blood HCO3 36 H 23-27 MMOL/L Arterial Blood Total CO2 38.2 H 21.0-31.0 MMOL/L Arterial Blood Oxygen Saturation 99 94-100 % Arterial Blood Base Excess 10.4 H -2.5-2.5 MMOL/L Olaf Test YES-POS Blood Gas Ventilator Setting NO Blood Gas Inspired Oxygen 4 Radiology NAME: CHEYANNE CHAN [facility] REC#: [id number] PT STATUS: ADM Letty : 1975 PHYSICIAN: JACKIE REYES DO ADMIT DATE: 03/12/19/ICU Draft Date of Exam:03/13/19 CHEST 1 VIEW, AP/PA ONLY INDICATION: Atrial fib, CHF. COMPARISON: 03/12/2019 FINDINGS: Single view of the chest demonstrates cardiac enlargement with persistent but decreased central vascular congestion. There is no pneumothorax. Osseous structures are stable. No large effusion. IMPRESSION: Cardiac enlargement with persistent but decreasing central vascular congestion. Dictated on workstation # [id number] Dict: 03/13/19 0713 Trans: 03/13/19 0720 KB [id number] Interpreted by: MANOJ RAY Electronically signed by: Physical Exam-([facility]) Physical Exam Vital Signs VS - Last 72 Hours, by Label 03/12/19 03/12/19 03/12/19 03/12/19 16:00 16:06 20:36 21:27 Temp 37.3 36.3 Pulse 129 107 112 Resp 20 20 B/P (MAP) 138/81 (100) 155/104 133/97 (109) Pulse Ox 98 96 93 O2 Delivery Nasal Cannula Nasal Cannula Nasal Cannula O2 Flow Rate 4.00 4.00 3.00 FiO2 98 03/12/19 03/12/19 03/12/19 03/12/19 21:28 21:34 21:40 21:45 Pulse 117 97 100 Resp 20 B/P (MAP) 141/92 (108) 148/88 (108) Pulse Ox 92 96 95 O2 Delivery Nasal Cannula Nasal Cannula Nasal Cannula O2 Flow Rate 3.00 3.00 3.00 03/12/19 03/12/19 03/12/19 03/13/19 22:00 22:59 23:00 00:00 Pulse 83 105 Resp 14 B/P (MAP) 130/88 (102) 133/83 (100) Pulse Ox 90 99 100 98 O2 Delivery Nasal Cannula Nasal Cannula Nasal Cannula Nasal Cannula O2 Flow Rate 3.00 4.00 3.00 3.00 03/13/19 03/13/19 03/13/19 03/13/19 00:00 01:00 01:00 02:00 Pulse 110 117 117 101 Resp 23 B/P (MAP) 101/75 (84) 113/66 (82) Pulse Ox 99 99 97 O2 Delivery Nasal Cannula Nasal Cannula Nasal Cannula O2 Flow Rate 3.00 3.00 3.00 03/13/19 03/13/19 03/13/19 03/13/19 03:00 04:00 04:00 05:00 Pulse 123 113 116 Resp 21 B/P (MAP) 128/112 (117) 143/88 (106) 112/77 (89) Pulse Ox 100 97 92 100 O2 Delivery Nasal Cannula Nasal Cannula Nasal Cannula Nasal Cannula O2 Flow Rate 3.00 3.00 3.00 3.00 03/13/19 03/13/19 03/13/19 03/13/19 06:00 07:00 07:00 08:00 Pulse 100 107 114 106 Resp 21 B/P (MAP) 126/71 (89) 127/85 (99) 111/71 (84) Pulse Ox 100 100 100 O2 Delivery Nasal Cannula Nasal Cannula Nasal Cannula O2 Flow Rate 3.00 3.00 3.00 03/13/19 03/13/19 03/13/19 03/13/19 08:00 09:00 09:44 10:00 Pulse 112 121 Resp 12 21 B/P (MAP) 135/90 (105) 129/68 (88) Pulse Ox 97 94 95 93 O2 Delivery Nasal Cannula Nasal Cannula Nasal Cannula Nasal Cannula O2 Flow Rate 3.00 3.00 4.00 3.00 03/13/19 03/13/19 03/13/19 03/13/19 11:00 11:47 12:00 12:32 Pulse 115 109 Resp 21 16 B/P (MAP) 121/75 (90) 113/72 (86) Pulse Ox 95 97 95 O2 Delivery Nasal Cannula Nasal Cannula Nasal Cannula Nasal Cannula O2 Flow Rate 3.00 3.00 3.00 4.00 03/13/19 03/13/19 03/13/19 12:52 13:00 14:00 Temp 37.2 Pulse 102 97 98 Resp 24 20 B/P (MAP) 107/69 (82) 123/81 (95) Pulse Ox 90 94 O2 Delivery Nasal Cannula Nasal Cannula O2 Flow Rate 3.00 3.00 Capillary Refill : Less Than 3 Seconds General Appearance: WD/WN, no apparent distress, obese HEENT: PERRL/EOMI Neck: non-tender, full range of motion Respiratory: chest non-tender, lungs clear, normal breath sounds, no respir atory distress, no accessory muscle use Cardiovascular: normal peripheral pulses, no edema, no murmur, tachycardia Gastrointestinal: normal bowel sounds, non tender, soft Extremities: normal range of motion, no calf tenderness, normal capillary refill, pedal edema 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, alert, oriented x 3 Skin: normal color, warm/dry Assessment/Plan Assessment/Plan Admission Status: Observation (1) Atypical chest pain Status: Acute Assessment & Plan: - Cardiology to see patient appreciate recommendations (2) Atrial fibrillation Status: Acute Assessment & Plan: - New onset, likely 2/2 untreated BOSTON Qualifiers: Qualified Codes: I48.0 - Paroxysmal atrial fibrillation (3) COPD with exacerbation Status: Acute Assessment & Plan: - Dr Rosas seeing patient, appreciate recommendations (4) BOSTON (obstructive sleep apnea) Status: Chronic (5) Normocytic anemia Status: Chronic (6) Morbid obesity with BMI of 60.0-69.9, adult Status: Chronic Assessment & Plan: - Discussed the need with patient for weight loss Clinical Quality Measures DVT/VTE Risk/Contraindication: Risk Factor Score Per Nursin RFS Level Per Nursing on Admit: 4+=Very High Copy Copies To 1: SELF,VIKI MURPHY MD, MD Mar 13, 2019 15:40
[2019-03-13] MEDS: BRIMONIDINE 0.2% (ALPHAGAN) OPHTH SOLN 5 ML BTL OU SCH (21:26)
[2019-03-13] MEDS: ALPRAZolam 0.5 MG (XANAX) TAB PO SCH (21:27)
[2019-03-13] MEDS: MELATONIN 3 MG TABLET PO SCH (21:27)
[2019-03-14] VITALS: BP 111/75
[2019-03-14 04:00] VITALS: BP 119/86
[2019-03-14 07:08] LABS: BASOPHILS % (AUTO) 0 % (0-10); EOSINOPHILS # (AUTO) 0.2 10^3/uL (0.0-0.3); EOSINOPHILS % (AUTO) 3 % (0-10); HEMATOCRIT 31 % (35-52); LYMPHOCYTES # (AUTO) 0.9 X 10^3 (1.0-4.0); LYMPHOCYTES % (AUTO) 15 % (12-44); MEAN CORPUSCULAR HEMOGLOBIN 26 PG (25-34); MEAN CORPUSCULAR HGB CONC 29 G/DL (32-36); MEAN CORPUSCULAR VOLUME 90 FL (80-99); MEAN PLATELET VOLUME 11.9 FL (7.4-10.4); MONOCYTES # (AUTO) 0.6 X 10^3 (0.0-1.0); MONOCYTES % (AUTO) 11 % (0-12); NEUTROPHILS # (AUTO) 4.1 X 10^3 (1.8-7.8); NEUTROPHILS % (AUTO) 71 % (42-75); PLATELET COUNT 160 10^3/uL (130-400); RED CELL DISTRIBUTION WIDTH 14.9 % (10.0-14.5); WHITE BLOOD COUNT 5.8 10^3/uL (4.3-11.0)
[2019-03-14 07:35] LABS: CALCIUM 9.4 MG/DL (8.5-10.1); CREATININE SERUM 1.37 MG/DL (0.60-1.30); MAGNESIUM 2.4 MG/DL (1.6-2.4); PHOSPHORUS 4.5 MG/DL (2.3-4.7); POTASSIUM 4.5 MMOL/L (3.6-5.0)
[2019-03-14 08:00] VITALS: BP 126/62
--- NOTE | 2019-03-14 08:03 | Diagnostic Imaging Report ---
INDICATION: New onset atrial fibrillation, congestive heart failure, pulmonary edema, chest pain. TECHNIQUE: Single view chest 3:31 AM. CORRELATION STUDY: 03/13/2019 FINDINGS: Cardiac enlargement and prominent mediastinum stable. Vasculature overall slightly increased from prior study. Definitive pulmonary infiltrate is not suggested. IMPRESSION: 1. Cardiac enlargement with component of vascular congestion. Dictated by: Dictated on workstation # [id number]
--- NOTE | 2019-03-14 08:44 | NUR ---
PRIOR TO A.M. MEDICATIONS PULSE WAS 98 AND B/P WAS 126/62
[2019-03-14] MEDS: APIXABAN 5 MG (ELIQUIS) TABLET PO SCH (08:55)
[2019-03-14] MEDS: BRIMONIDINE 0.2% (ALPHAGAN) OPHTH SOLN 5 ML BTL OU SCH (08:56)
[2019-03-14] MEDS ORDERED: DILTIAZEM 180 MG (CARDIZEM CD) CAP PO SCH (09:00)
--- NOTE | 2019-03-14 12:50 | Discharge Summary ---
Diagnosis/Chief Complaint Date of Admission Mar 12, 2019 at 17:40 Date of Discharge Discharge Diagnosis Problems/Diagnosis: (1) Atypical chest pain Assessment & Plan: - Cardiology to see patient appreciate recommendations Status: Acute (2) Atrial fibrillation Assessment & Plan: - New onset, likely 2/2 untreated BOSTON Qualifiers: Qualified Codes: I48.0 - Paroxysmal atrial fibrillation Status: Acute (3) COPD with exacerbation Assessment & Plan: - Dr Rosas seeing patient, appreciate recommendations Status: Acute (4) BOSTON (obstructive sleep apnea) Status: Chronic (5) Normocytic anemia Status: Chronic (6) Morbid obesity with BMI of 60.0-69.9, adult Assessment & Plan: - Discussed the need with patient for weight loss Status: Chronic Chief Complaint/HPI Chief Complaint/HPI 43 yo morbidly obese adult female that presented to ER with worsening shortness of breath and chest pain. Patient states that she tried her Reflux medicine and her nebulizer and neither helped prior to coming in. States that she get these twinges in her chest frequently but this one just did not go away so she had her mother bring her in. She does not follow with a pulmonary doctor. States that she was suppose to wear a CPAP but then lost weight and was told she not longer needed to wear it. Mother states that since then she has gained all the weight back plus some. Denies any current chest pain this AM. Discharge Summary-Simple/Stand Consultations Discharge Physical Examination Allergies: Coded Allergies: allopurinol (Verified Allergy, Unknown, 03/12/19) ibuprofen (Verified Allergy, Unknown, 03/12/19) levofloxacin (Verified Allergy, Unknown, 03/12/19) Vitals & I&Os Vital Sign - Last 12Hours Date Time Temp Pulse Resp B/P (MAP) Pulse Ox O2 Delivery O2 Flow Rate FiO2 03/14/19 09:00 Room Air 2.50 03/14/19 08:27 99 03/14/19 08:00 36.0 95 20 126/62 (83) 03/12/19 16:06 98 Intake and Output 03/14/19 00:00 Intake Total 882 ml Balance 882 ml Hospital Course See final discharge diagnosis. Radiology Reviewed NAME: CHEYANNE CHAN [facility] REC#: [id number] PT STATUS: ADM Letty : 1975 PHYSICIAN: IAM REYES DO ADMIT DATE: 03/12/19/ICU Draft Date of Exam:03/13/19 CHEST 1 VIEW, AP/PA ONLY INDICATION: Atrial fib, CHF. COMPARISON: 03/12/2019 FINDINGS: Single view of the chest demonstrates cardiac enlargement with persistent but decreased central vascular congestion. There is no pneumothorax. Osseous structures are stable. No large effusion. IMPRESSION: Cardiac enlargement with persistent but decreasing central vascular congestion. Dictated on workstation # [id number] Dict: 03/13/19 0713 Trans: 03/13/19 0720 KB [id number] Interpreted by: MANOJ RAY Electronically signed by: Discharge Instructions to patient/family Please see electronic discharge instructions given to patient. Discharge Medications Reviewed and agree with Discharge Medication list on patient's Discharge Instruction sheet Clinical Quality Measures DVT/VTE Risk/Contraindication: Risk Factor Score Per Nursin RFS Level Per Nursing on Admit: 4+=Very High VIKI HYATT MD Mar 14, 2019 12:50
[2019-03-14] MEDS ORDERED: DILT180C90 PO (12:52)
[2019-03-14] MEDS ORDERED: APIX5TAB PO (12:52)
--- NOTE | 2019-03-14 12:54 | Discharge Instructions ---
Discharge [facility] Reconcile Patient Problems Problems Reviewed?: Yes Discharge Medications New, Converted or Re-Newed RX: Transmitted to Pharmacy New Medications: Apixaban (Eliquis) 5 Mg Tablet 5 MG PO BID, #60 TAB Diltiazem HCl (Diltiazem 24Hr Cd) 180 Mg Cap.er.24h 360 MG PO DAILY, #30 CAP Continued Medications: Albuterol Sulfate (Albuterol Sulfate) 2.5 Mg/3 Ml Vial.neb 2.5 MG NEB Q6H PRN for SHORTNESS OF BREATH, EA Albuterol Sulfate (Proair Hfa) 1 Puff Puff 2 PUFF IH Q4H PRN for SHORTNESS OF BREATH, INHALER 1 PUFF = 90 MCG Alprazolam (Alprazolam) 0.25 Mg Tablet 0.25 MG PO HS, TAB Brimonidine Tartrate (Brimonidine Tartrate) 5 Ml Btl 1 DROP OU BID, EA 0.2% Citalopram Hydrobromide (Citalopram HBr) 40 Mg Tablet 20 MG PO HS, TAB TAKES 1/2 (40MG) TABLET Colchicine (Colchicine) 0.6 Mg Tablet 0.6 MG PO Q48H, TAB Docusate Sodium (Colace) 100 Mg Capsule 700-800 MG PO DAILY, CAP Ferrous Sulfate (Iron) 325 Mg Tablet 325 MG PO DAILY, TAB Furosemide (Furosemide) 40 Mg Tablet 40 MG PO Q48H, TAB Furosemide (Furosemide) 40 Mg Tablet 20 MG PO Q48H, TAB TAKES 1/2 (40MG) TABLET ON DAYS SHE TAKES COLCHICINE Lisinopril (Lisinopril) 20 Mg Tablet 10 MG PO DAILY, TAB TAKES 1/2 (20MG) TABLET Medroxyprogesterone Acetate (Depo-Provera) 150 Mg/1 Ml Syringe 150 MG IM EVERY 3 MONTHS, SYRINGE Melatonin (Melatonin) 10 Mg Capsule 10 MG PO HS, CAP Potassium Chloride (Potassium Chloride) 10 Meq Tablet.er 10 MEQ PO DAILY, TAB Patient Instructions Goal/Follow Up Appt: You have a follow up appt with Dr Fu on Mar 21 @ [address] [employer] will be happy to see you, make an appt when you are there for your f.u appt Activity & Diet Discharge Diet: Cardiac Diet Activity as Tolerated: Yes (Focus on 30 mins of daily exercise) Copy Copies To 1: DINAH,VIKI MURPHY MD, MD Mar 14, 2019 12:53
[2019-03-14 13:30] VITALS: BP 126/62
== END 2019-03-14 14:20 | disposition home or self-care (01) ==
LOC: ER FS 15:46 → ICU 17:40 → 4TH 03-13 13:41
PROVIDERS: ADMIT Internal Medicine; ATTEND Internal Medicine
DX: R07.9 Chest pain, unspecified (principal); I48.91 Unspecified atrial fibrillation; J44.1 Chronic obstructive pulmonary disease with (acute) exacerbation; G47.33 Obstructive sleep apnea (adult) (pediatric); E66.01 Morbid (severe) obesity due to excess calories; Z68.44 Body mass index [BMI] 60.0-69.9, adult; D50.9 Iron deficiency anemia, unspecified; I13.0 Hypertensive heart and chronic kidney disease with heart failure and stage 1 through stage 4 chronic kidney disease, or unspecified chronic kidney disease; E11.22 Type 2 diabetes mellitus with diabetic chronic kidney disease; N18.3 Chronic kidney disease, stage 3 (moderate); I50.813 Acute on chronic right heart failure; Z88.1 Allergy status to other antibiotic agents; Z88.6 Allergy status to analgesic agent; Z88.8 Allergy status to other drugs, medicaments and biological substances; Z99.81 Dependence on supplemental oxygen; Z79.899 Other long term (current) drug therapy
CPT/HCPCS: 36415; 36600; 71045; 71046; 80048; 80053; 82805; 83735; 83880; 84100; 84484; 85025; 85379; 87081; 93005; 93041; 93306; 93970; 94640; 94760; G0378

== ENCOUNTER → 2019-04-26 | Outpatient (CLI) | payer MEDICARE, MEDICAID ==
[~2019-04-26] MED LIST: ALBU2.5V4 NEB; ALPR0.254 PO; APIX5TAB PO; BRIMON0.2 OU; CITA40TA11 PO; COLC0.6T56 PO; DILT180C90 PO; DOCU-143 PO; FERR-84 PO; FURO40TA4 PO; LISI-552 PO; MEDR150D8 IM; MELA10CA2 PO; POTA10TA10 PO; RT-ALBUINH IH; RT-ALBUTEROL SULF 2.5 MG/3 ML PRE-MIX VIAL INH ONE; RT-ALBUTEROL SULF 2.5 MG/3 ML PRE-MIX VIAL ONE
== END ==
LOC: RT 08:56
PROVIDERS: ATTEND Nurse Practitioner Family
DX: J45.909 Unspecified asthma, uncomplicated (principal); J98.4 Other disorders of lung; R09.02 Hypoxemia; E66.2 Morbid (severe) obesity with alveolar hypoventilation
CPT/HCPCS: 94060; 94726; 94729

== ENCOUNTER → 2019-07-24 | Outpatient (CLI) | payer MEDICARE, MEDICAID ==
[~2019-07-24] MED LIST changes: +CATHETER FLUSH 10 ML SYR IV PRN; +DILT-28 PO; -DILT180C90 PO; +HOLD METFORMIN - RECEIVED CONTRAST 20 ML VIAL IV SCH; +IOHEXOL 350 MG/ML 100 ML (OMNIPAQUE 350) VIAL IV ONE; +NS 100 ML (IVPB) BAG IV ONE; -RT-ALBUTEROL SULF 2.5 MG/3 ML PRE-MIX VIAL INH ONE; -RT-ALBUTEROL SULF 2.5 MG/3 ML PRE-MIX VIAL ONE
[2019-07-24 12:45] LABS: CREATININE SERUM 1.19 MG/DL (0.60-1.30)
--- NOTE | 2019-07-24 15:48 | Diagnostic Imaging Report ---
PROCEDURE: CT chest with contrast only. TECHNIQUE: Multiple contiguous axial images were obtained through the chest after administration of intravenous contrast. Auto Exposure Controls were utilized during the CT exam to meet ALARA standards for radiation dose reduction. DATE: July 24, 2019. COMPARISON: Chest radiograph March 14, 2019. INDICATION: 44-year-old female, shortness of breath. FINDINGS: There is no pulmonary nodule. There is no lung mass. There is very mild atelectasis. There is no additional focal airspace consolidation. There is no pneumothorax. There is no pleural effusion. The central airways are patent. There is no identified central pulmonary embolus. There is limited assessment for segmental and subsegmental pulmonary emboli. The main pulmonary artery diameters enlarged at 3.7 cm in diameter which may reflect pulmonary artery hypertension. The heart is not enlarged. There is no pericardial effusion. There is no abnormally enlarged mediastinal, hilar, or axillary lymph node which meets CT size criteria for adenopathy. Evaluation of the imaged portions of the upper abdomen is unremarkable. There is no identified acute bony abnormality. IMPRESSION: CT CHEST. 1. Abnormally dilated main pulmonary artery diameter suggesting pulmonary artery hypertension. No identified central pulmonary embolus. 2. No identified acute cardiopulmonary abnormality. 3. No evidence of chronic lung disease. Dictated by: Dictated on workstation # [id number]
== END ==
LOC: LAB FS 12:04
PROVIDERS: ATTEND Internal Medicine Critical Care Medicine
DX: J45.909 Unspecified asthma, uncomplicated (principal); J98.4 Other disorders of lung; J96.10 Chronic respiratory failure, unspecified whether with hypoxia or hypercapnia; G47.33 Obstructive sleep apnea (adult) (pediatric)
CPT/HCPCS: 36415; 71260; 82565; 84520

== ENCOUNTER → 2021-04-07 | Outpatient (CLI) | payer MEDICARE, MEDICAID ==
[~2021-04-07] MED LIST changes: +ALPR.25T PO; -ALPR0.254 PO; -CATHETER FLUSH 10 ML SYR IV PRN; -COLC0.6T56 PO; +COLC0.6T59 PO; -HOLD METFORMIN - RECEIVED CONTRAST 20 ML VIAL IV SCH; -IOHEXOL 350 MG/ML 100 ML (OMNIPAQUE 350) VIAL IV ONE; -LISI-552 PO; +LISI20TA26 PO; -NS 100 ML (IVPB) BAG IV ONE; +RT-ALBUTEROL SULF 2.5 MG/3 ML PRE-MIX VIAL INH ONE
== END ==
LOC: RT 13:42
PROVIDERS: ATTEND Nurse Practitioner Family
DX: J45.909 Unspecified asthma, uncomplicated (principal)
CPT/HCPCS: 94060; 94726; 94729

== ENCOUNTER → 2023-03-01 | Outpatient (CLI) | payer MEDICARE, MEDICAID ==
[~2023-03-01] MED LIST changes: +ALBU8.5H6 IH; +BRIM5DRO3 OU; -BRIMON0.2 OU; -CITA40TA11 PO; +CITA40TA13 PO; -RT-ALBUINH IH; -RT-ALBUTEROL SULF 2.5 MG/3 ML PRE-MIX VIAL INH ONE
== END ==
LOC: CANPRECLI → CARD 14:30
PROVIDERS: ATTEND Nurse Practitioner Family
DX: I07.1 Rheumatic tricuspid insufficiency (principal)
CPT/HCPCS: 93306